=== PATIENT | female | born 1995 | race Two or more races ===

== ENCOUNTER 2016-10-21 11:17 | Inpatient (IN) | payer MEDICAID ==
[~2016-10-21] VITALS: Ht 30.5 cm; Wt 0.5 kg
[~2016-10-21 11:17] MED LIST: CEPH250C PO; PREN-153 OR
[2016-10-21] MEDS ORDERED: LACT. RINGERS/OXYTOCIN 20UNITS 1,000 ML IV SCH (11:42)
[2016-10-21] MEDS ORDERED: LIDOCAINE 2%HCL (LOCAL ANESTH.) INJ 20ML MDV IJ ONE (11:45)
[2016-10-21] MEDS ORDERED: PENICILLIN G POT 5MIL/D5 50ML 50 ML IV ONE (11:45)
[2016-10-21] MEDS ORDERED: PHISODERM TOP SOLN 240ML BTL TOP PRN (11:45)
[2016-10-21] MEDS ORDERED: WITCH HAZEL-GLYCERIN PAD TOP PRN (11:45)
[2016-10-21] MEDS ORDERED: DERMOPLAST 60ML BOTTLE TOP PRN (11:45)
[2016-10-21] MEDS ORDERED: PROMETHAZINE HCL 25 MG/ML 1ML IV PRN (11:45)
[2016-10-21] MEDS ORDERED: fentaNYL W ROPIVACAINE 150 ML EPI SCH ×2 (12:15)
[2016-10-21] MEDS ORDERED: ePHEDrine SULFATE 50 MG/ML AMP IV ONE ×2 (12:15)
[2016-10-21] MEDS ORDERED: LIDOCAINE HCL 2 %PF INJ 10ML AMP IJ ONE ×2 (12:15)
[2016-10-21] MEDS ORDERED: fentaNYL CITRATE 100 MCG/2 ML VL IV ONE ×2 (12:15)
[2016-10-21] MEDS ORDERED: NALOXONE HCL 0.4 MG/ML VIAL IV ONE ×2 (12:15)
[2016-10-21 12:35] LABS: Basophils # (auto) 0 uL; Basophils % (auto) 0.3 % (0.0-2.0); Eosinophils # (auto) 0.2 uL; Eosinophils % (auto) 1.5 % (0.0-7.0); Hemoglobin 11.6 g/dL (12.2-16.2); Lymphocytes # (auto) 2.8 uL; Lymphocytes % (auto) 25.1 % (10.0-50.0); Mean Corpuscular Hemoglobin 28.7 pg (28.0-32.0); Mean Corpuscular Volume 86.8 fL (80.0-100.0); Mean Platelet Volume 7.9 fL (7.4-10.4); Monocytes # (auto) 0.7 uL; Monocytes % (auto) 5.9 % (0.0-12.0); Neutrophils # (auto) 7.4 uL; Neutrophils % (auto) 67.2 % (37.0-80.0); Platelet Count (auto) 265 10^3/uL (140-450); Red Cell Distribution Width 16.1 % (11.6-16.0); White Blood Cell 11.1 10^3/uL (4.4-10.8)
[2016-10-21 12:48] LABS: INR 0.97 (0.9-1.15)
[2016-10-21 12:54] LABS: Albumin 2.9 g/dL (3.4-5.0); Bilirubin, Total 0.3 mg/dL (0.2-1.0); Potassium 3.6 mmol/L (3.5-5.1); Total Protein 6.9 g/dL (6.4-8.2)
[2016-10-21] MEDS: PENICILLIN G POTASSIUM 2,500,000 UNITS in D5W 5% 50 ML IV SCH ×2 (17:11→21:15)
[2016-10-21] MEDS: NALBUPHINE HCL 10 MG/1ml INJECTION IM PRN ×2 (17:22→21:15)
[2016-10-21] MEDS: PROMETHAZINE HCL 25 MG/ML 1ML IM PRN ×2 (17:25→21:15)
[2016-10-21] MEDS: LACTATED RINGER'S 1,000 ML IV SCH ×2 (19:42→21:23)
[2016-10-21] MEDS ORDERED: ACETAMINOPHEN 325 MG TAB PO PRN (22:30)
[2016-10-21] MEDS ORDERED: IBUPROFEN 600 MG TAB PO PRN (22:30)
[2016-10-22 04:08] VITALS: BP 128/67
[2016-10-22 07:00] VITALS: BP 105/58
[2016-10-22] MEDS ORDERED: DOCUSATE CALCIUM 240 MG CAP PO SCH (10:00)
[2016-10-22] MEDS: DOCUSATE CALCIUM 240 MG CAP PO SCH (10:00)
[2016-10-22 12:30] VITALS: BP 112/60
[2016-10-22 15:58] VITALS: BP 108/63
[2016-10-22 19:30] VITALS: BP 125/78
[2016-10-22 23:30] VITALS: BP 130/78
[2016-10-23] MEDS ORDERED: MEASLES, MUMPS & RUBELLA VAC(MMRII) 0.5ML SC ONE (03:30)
[2016-10-23 04:30] VITALS: BP 120/80
[2016-10-23 07:01] VITALS: BP 109/76
[2016-10-23] MEDS: DOCUSATE CALCIUM 240 MG CAP PO SCH (10:43)
[2016-10-23 10:56] VITALS: BP 115/67
== END 2016-10-23 12:30 | disposition home or self-care (01) | DRG 560 ==
LOC: LDRP 11:17 → OBSVTOIN 11:54 → LDRP 11:55
PROVIDERS: ADMIT Specialist; ATTEND Specialist
PROC: 10E0XZZ Delivery of Products of Conception, External Approach (ICD-10-PCS; principal; 2016-10-21)
PROC: 3E0234Z Introduction of Serum, Toxoid and Vaccine into Muscle, Percutaneous Approach (ICD-10-PCS; 2016-10-23)
DX: O80 Encounter for full-term uncomplicated delivery (principal); Z23 Encounter for immunization; Z37.0 Single live birth; O09.33 Supervision of pregnancy with insufficient antenatal care, third trimester; Z3A.38 38 weeks gestation of pregnancy; Z91.19 Patient's noncompliance with other medical treatment and regimen
CPT/HCPCS: 36415; 51702; 59025; 59409; 76805; 80053; 85025; 85610; 85730; 86592; 86850; 86900; 86901; 96361; 96365; 96366; 96372; 96374; G0378; G0434; J2540; J2590; J3010; J7060

== ENCOUNTER 2017-07-31 19:18 | Emergency (ER) | payer MEDICAID ==
[~2017-07-31] VITALS: Ht 157.5 cm; Wt 83.0 kg
[2017-07-31] MEDS ORDERED: ACETAMINOPHEN 500 MG TAB PO ONE (19:45)
[2017-07-31] MEDS ORDERED: ONDANSETRON HCL 4 MG/2 ML VIAL IV ONE (19:45)
[2017-07-31] MEDS ORDERED: CEFTRIAXONE SODIUM 2 GM in D5W 5% 50 ML IV ONE (20:30)
[2017-07-31] MEDS ORDERED: SODIUM CHLORIDE 0.9% 2,000 ML IV ONE (20:30)
[2017-07-31] MEDS ORDERED: DEXAMETHASONE SOD PHOS 10MG/1ML VIAL INJ IV ONE (20:30)
[2017-07-31] MEDS ORDERED: cefTRIAXone 1GM/50ML D5W 100 ML IV ONE (20:44)
[2017-07-31 21:04] LABS: Basophils # (auto) 0 uL; Basophils % (auto) 0.2 % (0.0-2.0); Eosinophils # (auto) 0 uL; Hemoglobin 12.2 g/dL (12.2-16.2); Lymphocytes % (auto) 6.2 % (10.0-50.0); Mean Corpuscular Hemoglobin 27.4 pg (28.0-32.0); Mean Corpuscular Hgb Conc. 33.1 g/dL (32.0-36.0); Mean Corpuscular Volume 82.9 fL (80.0-100.0); Monocytes # (auto) 0.7 uL; Monocytes % (auto) 4.3 % (0.0-12.0); Neutrophils % (auto) 89.3 % (37.0-80.0); Platelet Count (auto) 218 10^3/uL (140-450); White Blood Cell 15.7 10^3/uL (4.4-10.8)
[2017-07-31 21:10] LABS: Partial Thromboplastin Time 31.8 sec (22.64-33.71); Prothrombin Time 10.9 sec (9.37-12.3)
[2017-07-31 21:15] LABS: Albumin 3.4 g/dL (3.4-5.0); Calcium 9.3 mg/dL (8.5-10.1)
[2017-07-31 21:17] LABS: Bilirubin, Total 0.7 mg/dL (0.2-1.0); Total Protein 7.3 g/dL (6.4-8.2)
[2017-07-31] MEDS ORDERED: LIDOCAINE 1% HCL (LOCAL ANESTH.) INJ 20ML MDV ONE (21:33)
[2017-07-31 22:38] LABS: Urine Bilirubin Negative (Negative); Urine Blood Negative /uL (Negative); Urine Color Yellow (Yellow); Urine Glucose Normal (Normal); Urine Ketone 2+ (Negative); Urine Mucus FEW (None Seen); Urine Nitrite Negative (Negative); Urine RBC <1 /hpf (0 - 4); Urine Squamous Epithelial Cell FEW /hpf (<5); Urine Urobilinogen Normal (Negative); Urine pH 5.5 (5.0-8.0)
[2017-07-31 22:49] VITALS: BP 108/50
[2017-07-31] MEDS ORDERED: LORazepam 2MG/ML-1ML VIAL ONE (23:05)
[2017-07-31] MEDS ORDERED: LORazepam 2MG/ML-1ML VIAL IV ONE (23:15)
[2017-08-01] MEDS ORDERED: ONDANSETRON HCL 4 MG/2 ML VIAL ONE (00:05)
[2017-08-01] MEDS ORDERED: HYDROmorphone HCL 2 MG/ML VL ONE (00:05)
[2017-08-01] MEDS ORDERED: HYDROmorphone HCL 2 MG/ML VL IV ONE (00:15)
[2017-08-01] MEDS ORDERED: ONDANSETRON HCL 4 MG/2 ML VIAL IV ONE (00:15)
[2017-08-09] MEDS ORDERED: ACYC400T PO (09:49)
[2017-08-09] MEDS ORDERED: IBUP600T27 PO (09:49)
== END 2017-08-01 02:37 | disposition left against medical advice (07) ==
LOC: EDBD 19:18 → ER 19:30
DX: J02.0 Streptococcal pharyngitis (principal); J06.9 Acute upper respiratory infection, unspecified; Z53.29 Procedure and treatment not carried out because of patient's decision for other reasons
CPT/HCPCS: 36415; 62270; 70450; 71010; 80053; 81001; 83605; 85025; 85610; 85730; 87040; 87400; 87880; 96365; 96375; 99285; J0696; J1100; J1170; J2001; J2060; J2405; 96361; J7060

== ENCOUNTER 2018-10-24 17:30 | Emergency (ER) | payer MEDICAID ==
[~2018-10-24] VITALS: Ht 157.5 cm; Wt 73.5 kg
[~2018-10-24 17:30] MED LIST changes: +ACYC400T PO; -CEPH250C PO; +IBUP600T27 PO; -PREN-153 OR
[2018-10-24 18:15] LABS: Urine Bacteria MOD /hpf (None Seen); Urine Blood 1+ /uL (Negative); Urine Specific Gravity 1.016 (1.001-1.035); Urine WBC 102 /hpf (0 - 5)
[2018-10-24] MEDS ORDERED: ONDANSETRON ODT 4 MG TAB PO ONE (20:30)
[2018-10-24] MEDS ORDERED: NITROFURANTOIN (MONO) 100 mg CAP PO ONE (20:30)
[2018-10-24 20:45] VITALS: BP 122/64
== END 2018-10-24 20:47 | disposition home or self-care (01) ==
LOC: ER 17:33
DX: O20.0 Threatened abortion (principal); O21.9 Vomiting of pregnancy, unspecified; O23.41 Unspecified infection of urinary tract in pregnancy, first trimester; Z3A.10 10 weeks gestation of pregnancy
CPT/HCPCS: 36415; 76801; 81001; 84702

== ENCOUNTER 2019-05-08 01:02 | Observation (INO) | payer MEDICAID ==
[~2019-05-08 01:02] MED LIST changes: +ACYC-161 PO; -ACYC400T PO
[2019-05-09] MEDS ORDERED: PREN-96 PO (15:39)
== END 2019-05-08 01:50 | disposition home or self-care (01) | DRG 566 ==
LOC: LDRP 01:02
PROVIDERS: ADMIT Obstetrics & Gynecology; ATTEND Obstetrics & Gynecology
DX: O62.9 Abnormality of forces of labor, unspecified (principal); Z3A.39 39 weeks gestation of pregnancy; Z87.891 Personal history of nicotine dependence
CPT/HCPCS: 59025; 81002; G0378

== ENCOUNTER 2019-05-09 04:13 | Inpatient (IN) | payer MEDICAID ==
[~2019-05-09] VITALS: Ht 157.5 cm; Wt 82.6 kg
[2019-05-09] MEDS ORDERED: LACT. RINGERS/OXYTOCIN 20UNITS 1,000 ML IV SCH ×2 (04:44→06:57)
[2019-05-09] MEDS ORDERED: LACTATED RINGER'S 1,000 ML IV SCH (04:44)
[2019-05-09] MEDS ORDERED: PHISODERM TOP SOLN 240ML BTL TOP PRN (04:45)
[2019-05-09] MEDS ORDERED: DERMOPLAST 60ML BOTTLE TOP PRN (04:45)
[2019-05-09] MEDS ORDERED: NALBUPHINE HCL 10 MG/1ml INJECTION IV PRN (04:45)
[2019-05-09] MEDS ORDERED: METHYLERGONOVINE MALEATE 0.2 MG/ML AMP IM PRN (04:45)
[2019-05-09] MEDS ORDERED: WITCH HAZEL-GLYCERIN PAD TOP PRN (04:45)
[2019-05-09] MEDS ORDERED: LIDOCAINE 2%HCL (LOCAL ANESTH.) INJ 20ML MDV ID ONE (04:45)
[2019-05-09 05:35] LABS: Basophils # (auto) 0 uL; Basophils % (auto) 0.4 % (0.0-2.0); Eosinophils # (auto) 0.1 uL; Eosinophils % (auto) 0.8 % (0.0-7.0); Hematocrit 32.9 % (36.0-46.0); Hemoglobin 10.9 g/dL (12.2-16.2); Lymphocytes # (auto) 2.8 uL; Lymphocytes % (auto) 32.8 % (10.0-50.0); Mean Corpuscular Hemoglobin 28.6 pg (28.0-32.0); Mean Corpuscular Hgb Conc. 33.2 g/dL (32.0-36.0); Mean Corpuscular Volume 86.4 fL (80.0-100.0); Monocytes # (auto) 0.6 uL; Monocytes % (auto) 7.4 % (0.0-12.0); Neutrophils % (auto) 58.6 % (37.0-80.0); Platelet Count (auto) 244 10^3/uL (140-450); Red Blood Cells 3.81 10^6/uL (4.0-5.20); White Blood Cell 8.6 10^3/uL (4.4-10.8)
[2019-05-09 06:01] LABS: Albumin 2.7 g/dL (3.4-5.0); BUN/Creatinine Ratio 22.8; Calcium 8.2 mg/dL (8.5-10.1); Potassium 3.4 mmol/L (3.5-5.1)
[2019-05-09 06:04] LABS: Bilirubin, Total 0.5 mg/dL (0.2-1.0); Total Protein 6.6 g/dL (6.4-8.2)
[2019-05-09 06:45] LABS: INR 0.93 (0.9-1.15); Partial Thromboplastin Time 30.8 sec (23.64-32.05)
[2019-05-09 07:06] VITALS: BP 122/78
--- NOTE | 2019-05-09 07:06 | NUR ---
Ambulation: Patient OOB with standby assistance by RN. Patient ambulated to bathroom with steady gait. Patient able to void 375ml without difficulty. [facility]icare teaching provided with returned demonstration by patient. Clean gown provided and bed linen changed. Patient ambulated back to bed with steady gait and no distress noted.
[2019-05-09] MEDS ORDERED: POTASSIUM CHL 20 Meq TABLET PO ONE (07:45)
[2019-05-09 08:08] LABS: Urine Bacteria FEW /hpf (None Seen); Urine Blood 2+ /uL (Negative); Urine Mucus FEW (None Seen); Urine Specific Gravity 1.009 (1.001-1.035); Urine WBC 50 /hpf (0 - 5)
[2019-05-09 08:11] LABS: Alcohol, Urine < 3.0 mg/dL (0-5); Amphetamine Screen, Urine NEGATIVE (NEGATIVE); Barbiturate Scree,Urine NEGATIVE (NEGATIVE); Benzodiazephine Screen, Urine NEGATIVE (NEGATIVE); Cannabinoid Screen, Urine NEGATIVE (NEGATIVE); Cocaine Screen, Urine NEGATIVE (NEGATIVE); Opiate Scree,Urine NEGATIVE (NEGATIVE); Phencyclidine Screen, Urine NEGATIVE (NEGATIVE)
[2019-05-09 11:05] VITALS: BP 107/55
[2019-05-09 15:00] VITALS: BP 105/67
[2019-05-09] MEDS ORDERED: PREN-96 PO (15:39)
[2019-05-09 19:30] VITALS: BP 99/55
[2019-05-09 23:00] VITALS: BP_SYST 127; BP_SYST 92; BP_DIAS 46; BP_DIAS 71
[2019-05-10 03:30] VITALS: BP 100/60
[2019-05-10 07:00] VITALS: BP 106/51
[2019-05-10 08:07] LABS: RPR Non Reactive (Non Reactive)
[2019-05-10 11:10] VITALS: BP 102/54
--- NOTE | 2019-05-10 12:19 | NUR ---
Discharge: Discharge instructions given as ordered. Pt encouraged to follow up with [employer] as instructed. All questions and concerns addressed. Patient verbalized understanding. Medication reconciliation completed and copy given to patient. All required/requested vaccines given and copies of vaccinations given to patient. Patient encouraged to prepare to depart unit.
--- NOTE | 2019-05-10 13:25 | NUR ---
Discharge: Patient taken to vehicle via wheelchair with all personal belongings, accompanied by staff and family member. No distress noted at time of departure, no adverse changes in status since initial assessment. Encourage PT to call with any questions or concerns.
== END 2019-05-10 13:25 | disposition home or self-care (01) | DRG 560 ==
LOC: OBSVTOIN 04:13 → LDRP 04:13
PROVIDERS: ADMIT Specialist; ATTEND Specialist
PROC: 10E0XZZ Delivery of Products of Conception, External Approach (ICD-10-PCS; principal; 2019-05-09)
DX: O62.3 Precipitate labor (principal); Z37.0 Single live birth; Z3A.39 39 weeks gestation of pregnancy
CPT/HCPCS: 36415; 59025; 59409; 80053; 80307; 81001; 81002; 84112; 85025; 85610; 85730; 86592; 86850; 86900; 86901; 96365; 96366; G0378; J2590